=== PATIENT | male | born 1970 | race Two or more races ===

== ENCOUNTER 2024-07-08 11:06 | Inpatient (IN) | payer OTHER, SELFPAY ==
[2024-06-24 09:02] LABS: Hematocrit 42.4 % (39.0-52.0); Hemoglobin 14.4 g/dL (13.0-18.0); Mean Corpuscular Hgb 31.4 pg (27.0-31.0); Mean Corpuscular Volume 92.4 fL (80.0-94.0); Mean Platelet Volume 10.4 fL (7.4-10.4); Platelet Count 169 10^3/uL (130-400); Red Blood Cell Count 4.59 10^6/uL (4.70-6.10); Red Cell Dist. Width 12.9 % (11.5-14.5); White Blood Cell Count 5.3 10^3/uL (4.8-10.8)
[2024-06-24 09:08] LABS: INR 1.04; PT 13.4 Sec (11.4-14.6)
[2024-06-24 09:09] LABS: APTT 28.1 Sec (23.4-35.0)
[2024-06-24 09:29] VITALS: BMI 31.4
[2024-06-24 09:35] LABS: ALT (SGPT) 37 U/L (0-50); AST (SGOT) 29 U/L (17-59); Albumin 4.3 g/dl (3.5-5.0); Alkaline Phosphatase 62 U/L (38-126); Blood Urea Nitrogen 17 mg/dl (9-20); Calcium 9.2 mg/dl (8.4-10.2); Carbon Dioxide 28 mmol/L (22-30); Chloride 101 mmol/L (98-107); Estimated Creatinine Clearance 97 ml/min; Glucose 114 mg/dl (70-99); Potassium 4.3 mmol/L (3.5-5.1); Sodium 138 mmol/L (135-145); Total Protein 6.6 g/dl (6.3-8.2); eGFR > 60.00
[2024-06-24 10:12] LABS: Glycohemoglobin (HgbA1c) 5.8 % (4.0-5.6)
[2024-07-08] VITALS (14 sets, daily range): BP systolic 122–150; BP diastolic 76–92; BMI 31.4
[2024-07-08] MEDS: TYLENOL 1000 MG PO (11:44)
[2024-07-08] MEDS: ENTEREG 12 MG PO (11:44)
[2024-07-08] MEDS: NORMOSOL-R/PLASMALYTE-A 1000 IV ×2 (11:45→18:34)
[2024-07-08] MEDS: HEPARIN 5000 UNITS SC (11:46)
[2024-07-08] MEDS: DILAUDID 0.5 MG IV ×4 (17:26→21:43)
--- NOTE | 2024-07-08 17:29 | W.IMMPOSTOP ---
Surgical Immed Post Op Note
-
Primary Surgeon: Negrito Acosta MD
Assistants: ERIC Arzate
Pre-op Diagnosis: Recurrent sigmoid diverticulitis
Post-op Diagnosis: Same
Procedure Performed: Robotic sigmoid resection with intracorporeal anastomosis; takedown of splenic flexure
Anesthesia Type: GET
Specimen / Cultures: Sigmoid colon (suture is proximal)
Estimated Blood Loss: 25cc
Complications: None
Operative Findings: Sigmoid diverticulitis in the proximal sigmoid colon
28mm EEA
Normal leak test
Patient's updated in the waiting room.
[2024-07-08] MEDS: TORADOL 15 MG IV (18:04)
[2024-07-08] MEDS: LIPITOR 20 MG PO (21:43)
[2024-07-08] MEDS: SINGULAIR 10 MG PO (21:43)
[2024-07-08] MEDS: TYLENOL 650 MG PO (21:44)
[2024-07-09] MEDS: TORADOL 15 MG IV ×5 (00:14→23:15)
[2024-07-09] MEDS: TYLENOL 650 MG PO ×4 (00:17→11:42)
[2024-07-09] MEDS: TYLENOL PO (04:07)
[2024-07-09] MEDS: DILAUDID 0.5 MG IV ×4 (04:17→18:12)
[2024-07-09] MEDS: NORMOSOL-R/PLASMALYTE-A 1000 IV ×3 (04:28→23:16)
[2024-07-09 06:00] VITALS: BMI 31.4
[2024-07-09 07:24] LABS: Blood Urea Nitrogen 15 mg/dl (9-20); Calcium 8.2 mg/dl (8.4-10.2); Carbon Dioxide 27 mmol/L (22-30); Chloride 99 mmol/L (98-107); Estimated Creatinine Clearance 107 ml/min; Glucose 145 mg/dl (70-99); Potassium 4.4 mmol/L (3.5-5.1); Sodium 138 mmol/L (135-145); eGFR > 60.00
[2024-07-09 07:35] VITALS: BP 129/74
[2024-07-09] MEDS: ENTEREG 12 MG PO ×2 (08:15→19:27)
[2024-07-09] MEDS: ASPIR LOW (ENTERIC COATED) 81 MG PO (08:15)
[2024-07-09 08:50] LABS: % Basophils 0.2 % (0-2); % Immature Granulocytes 0.5 % (0-0.5); % Lymphocytes 5.2 % (20.5-51.1); % Monocytes 9.5 % (1.7-9.3); % Neutrophils 84.7 % (42.2-75.2); Absolute Lymphocytes 0.5 10^3/uL (1.2-3.4); Absolute Neutrophils 9.2 10^3/uL (1.4-6.5); Hematocrit 39.9 % (39.0-52.0); Hemoglobin 13.9 g/dL (13.0-18.0); Mean Corp Hgb Conc. 34.7 g/dL (33.0-37.0); Mean Corpuscular Hgb 31.7 pg (27.0-31.0); Mean Corpuscular Volume 91.4 fL (80.0-94.0); Mean Platelet Volume 11.2 fL (7.4-10.4); Nucleated Red Blood Cells % 0 % (-); Platelet Count 85 10^3/uL (130-400); Red Blood Cell Count 4.41 10^6/uL (4.70-6.10); Red Cell Dist. Width 13.2 % (11.5-14.5); White Blood Cell Count 10.9 10^3/uL (4.8-10.8)
--- NOTE | 2024-07-09 08:59 | W.PN.GS2 ---
Addendum entered and electronically signed by Tino Cunningham MD 07/09/24 14:48:
I saw and examined the patient.
The Agricultural Research Director's note was reviewed and I agree with the note with one change noted below.
Comment: Issues with pain control. He is trying to avoid narcs. Discussed multimodal mgmt and the importance of keeping pain reasonably well controlled. Exam approp, mild soft distention, incisions cdi. New thrombocytopenia, mild - will hold
lovenox for this reason, SCDs for DVT ppx; added scheduled ofirmev to toradol and added prn oxy, dilaudid also avail prn
Original Note:
Today's Communication / Plan
-
OOB/Ambulate
Wean off o2
Assessment / Plan
-
54 yo male with h/o recurrent sigmoid diverticulitis now POD #1 robotic sigmoid resection
AFVSS
Tolerated the procedure well
Mild thrombocytopenia noted, labs otherwise stable
Await bowel recovery
--C/W CLD
--Wean off O2, IS while awake
--OOB/Ambulate
--Multimodal analgesics
--Lovenox 40mg sq for vte ppx with scds while in bed
Subjective Data
-
Date of Service: July 09, 2024
Patient seen and examined at bedside. Denies n/v. Not passing flatus as of yet, but hearing a lot of 'gurgling' in his stomach. Pain in shoulders and with deep inspiration.
Objective Data
-
Intake and Output
07/08/24 07/09/24 07/10/24
06:59 06:59 06:59
Intake Total 2120 / 2120
Output Total 950 / 950
Balance 1170 / 1170
Intake:
Oral fluids 420 / 420
IV fluids (Total) 1700 / 1700
Normosol 600 / 600
Output:
Urine, Jessica 950 / 950
Vital Signs
Temp Pulse Resp BP Pulse Ox
98.5 F 75 16 129/74 96
07/09/24 07:35 07/09/24 07:35 07/09/24 07:35 07/09/24 07:35 07/09/24 07:35
Lab Results
07/09/24 06:29
07/09/24 06:29
Calcium 8.2 mg/dl (8.4-10.2) L 07/09/24 06:29
Total Bilirubin 1.0 mg/dl (0.2-1.3) 06/24/24 07:09
AST 29 U/L (17-59) 06/24/24 07:09
ALT 37 U/L (0-50) 06/24/24 07:09
Alkaline Phosphatase 62 U/L (38-126) 06/24/24 07:09
Total Protein 6.6 g/dl (6.3-8.2) 06/24/24 07:09
Albumin 4.3 g/dl (3.5-5.0) 06/24/24 07:09
Physical Exam
-
NAD
ABD soft, mild distention, mild generalized tenderness
Incisions clear, dry, intact
Jessica with clear, yellow urine
--- NOTE | 2024-07-09 12:10 | CM ---
Patient seen at bedside. Patient states that he lives with his in a 2 story home. patient stated that he has no DME, Patient PCP is Dr. Betancourt and uses the [facility] in [place]. Patient stated that he was uncomfortable and did not know when he
would be able to go home. Patient may benefit from PT/OT assessment when appropriate. CM will continue to follow for discharge planning needs.
Plan; home with VN vs home with no needs.
[2024-07-09 15:05] VITALS: BP 124/70
[2024-07-09] MEDS: ROXICODONE 5 MG PO ×2 (16:02→20:06)
[2024-07-09] MEDS: OFIRMEV IV (17:21)
[2024-07-09] MEDS: LIPITOR 20 MG PO (17:26)
[2024-07-09] MEDS: SINGULAIR 10 MG PO (17:26)
[2024-07-09] MEDS: OFIRMEV 100 IV (21:36)
[2024-07-09 23:11] VITALS: BP 145/69
--- NOTE | 2024-07-10 02:36 | PTCARENOTE ---
Pt ambulated with staff this shift, attempted to have BM, only large amount of flatus. Pt reports pain feels slightly better with passing gas.
[2024-07-10 02:44] VITALS: BP 124/75
[2024-07-10] MEDS: DILAUDID 0.25 MG IV (02:45)
[2024-07-10] MEDS: OFIRMEV 100 IV ×2 (04:20→10:31)
[2024-07-10 05:31] VITALS: BMI 31.1
[2024-07-10] MEDS: TORADOL 15 MG IV ×3 (06:14→17:29)
[2024-07-10 08:20] VITALS: BP 131/85
[2024-07-10] MEDS: ENTEREG 12 MG PO ×2 (08:37→19:49)
[2024-07-10] MEDS: ASPIR LOW (ENTERIC COATED) 81 MG PO (08:37)
[2024-07-10] MEDS: NORMOSOL-R/PLASMALYTE-A 1000 IV (08:40)
[2024-07-10 08:43] LABS: Blood Urea Nitrogen 13 mg/dl (9-20); Calcium 8.1 mg/dl (8.4-10.2); Carbon Dioxide 29 mmol/L (22-30); Chloride 102 mmol/L (98-107); Estimated Creatinine Clearance 118 ml/min; Glucose 122 mg/dl (70-99); Sodium 139 mmol/L (135-145); eGFR > 60.00
[2024-07-10 09:01] LABS: Hematocrit 35.6 % (39.0-52.0); Hemoglobin 12.3 g/dL (13.0-18.0); Mean Corp Hgb Conc. 34.6 g/dL (33.0-37.0); Mean Corpuscular Hgb 31.9 pg (27.0-31.0); Mean Corpuscular Volume 92.2 fL (80.0-94.0); Mean Platelet Volume 10.3 fL (7.4-10.4); Platelet Count 141 10^3/uL (130-400); Red Blood Cell Count 3.86 10^6/uL (4.70-6.10); Red Cell Dist. Width 13.4 % (11.5-14.5); White Blood Cell Count 8.3 10^3/uL (4.8-10.8)
[2024-07-10] MEDS: ROXICODONE 10 MG PO ×2 (10:17→22:40)
--- NOTE | 2024-07-10 11:25 | W.PN.GS2 ---
Addendum entered and electronically signed by Tino Cunningham MD 07/10/24 13:48:
I saw and examined the patient.
The Auto Leasing Manager's note was reviewed and I agree with the note.
Comment: Issues with pain control, slightly improved from yesterday. Passing flatu/stool. Incr dose of PO pain meds, adv to fld
Original Note:
Today's Communication / Plan
-
pain management
FLD
Assessment / Plan
-
54 yo male with h/o recurrent sigmoid diverticulitis now POD #2 robotic sigmoid resection
AFVSS
Tolerated the procedure well
Still with significant post op pain
Thrombocytopenia resolved, mild acute anemia secondary to hemodilution/expected losses
Passing flatus/stools
--Advance to FLD
--Trend labs
--OOB/Ambulate
--Multimodal analgesics, increased dosing of oral agents
--Lovenox 40mg sq for vte ppx with scds while in bed
Subjective Data
-
Date of Service: July 10, 2024
Patient seen and examined at bedside with Dr. Cunningham. Still with significant pain. Denies n/v. Tolerating clears. Passing flatus and stools. Has been oob and walking. Voiding since stein removal.
Objective Data
-
Intake and Output
07/09/24 07/10/24 07/11/24
06:59 06:59 06:59
Intake Total 2120 / 2120 3940 / 3940
Output Total 950 / 950 2100 / 2100
Balance 1170 / 1170 1840 / 1840
Intake:
Oral fluids 420 / 420 1340 / 1340
IV fluids (Total) 1700 / 1700 2400 / 2400
Normosol 600 / 600
IV piggybacks 200 / 200
Output:
Urine, Stein 950 / 950 1150 / 1150
Urine, Voided 950 / 950
Vital Signs
Temp Pulse Resp BP Pulse Ox
98.7 F 70 16 131/85 97
07/10/24 08:20 07/10/24 08:20 07/10/24 08:20 07/10/24 08:20 07/10/24 08:20
Lab Results
07/10/24 06:41
07/10/24 06:41
Calcium 8.1 mg/dl (8.4-10.2) L 07/10/24 06:41
Total Bilirubin 1.0 mg/dl (0.2-1.3) 06/24/24 07:09
AST 29 U/L (17-59) 06/24/24 07:09
ALT 37 U/L (0-50) 06/24/24 07:09
Alkaline Phosphatase 62 U/L (38-126) 06/24/24 07:09
Total Protein 6.6 g/dl (6.3-8.2) 06/24/24 07:09
Albumin 4.3 g/dl (3.5-5.0) 06/24/24 07:09
Physical Exam
-
NAD
ABD soft, NT, tender with guarding r>l
Incisions clear, dry, intact
[2024-07-10 15:45] VITALS: BP 130/79
[2024-07-10] MEDS: ROXICODONE 5 MG PO (16:44)
[2024-07-10] MEDS: SINGULAIR 10 MG PO (17:28)
[2024-07-10] MEDS: LIPITOR 20 MG PO (17:28)
[2024-07-10 19:55] VITALS: BP 125/78
[2024-07-10 23:01] VITALS: BP 148/79
[2024-07-10 23:44] VITALS: BP 147/81
[2024-07-11] MEDS: TORADOL 15 MG IV ×5 (00:16→23:10)
[2024-07-11 03:06] VITALS: BP 130/71
[2024-07-11 05:29] VITALS: BMI 30.9
[2024-07-11 06:00] VITALS: BMI 30.9
--- NOTE | 2024-07-11 06:09 | PTCARENOTE ---
pt reported he feels concerned about some minor swelling on the body of the penis. He reported he informed MD yesterday and they reported in would most likely resolve but he is still concerned this morning. He denies any pain or complications
urinating since stein removal on 07/10. Pt encouraged to ask MD on rounds this morning and will pass on the above findings to oncoming RN.
[2024-07-11 07:25] VITALS: BP 143/90
[2024-07-11] MEDS: ENTEREG 12 MG PO ×2 (09:02→20:16)
[2024-07-11] MEDS: ASPIR LOW (ENTERIC COATED) 81 MG PO (09:03)
[2024-07-11] MEDS: ROXICODONE 5 MG PO ×2 (09:37→13:59)
--- NOTE | 2024-07-11 11:54 | W.PN.CRS1 ---
Today's Communication / Plan
-
pain control
low residue diet
Assessment/Plan
-
54 yo male with h/o recurrent sigmoid diverticulitis now POD #3 robotic sigmoid resection
AFVSS
Post op pain
Passing flatus/stools
--Advance to low residue diet
--Trend labs
--OOB/Ambulate
--Multimodal analgesics, increased dosing of oral agents yesterday, increased PRN Dilaudid today
--Non tender on exam and urinating well, will follow swelling
--Lovenox 40mg sq for vte ppx with scds while in bed
Subjective Data
Subjective Data
Date of Service: July 11, 2024
Patient states he has been walking. he has some abdominal pain. He had nausea this morning but is attributing this to acid reflux. He is having bowel movements and flatus. He is hungry. He also complains of some swelling in his penis he noted
yesterday.
Objective Data
-
Vital Signs
Temp Pulse Resp BP Pulse Ox
98.6 F 64 18 143/90 98
07/11/24 09:47 07/11/24 07:25 07/11/24 07:25 07/11/24 07:25 07/11/24 07:25
Intake & Output
07/10/24 07/11/24 07/12/24
06:59 06:59 06:59
Intake Total 3940 / 3940 2260 / 2260
Output Total 2100 / 2100
Balance 1840 / 1840 2260 / 2260
Intake:
Oral fluids 1340 / 1340 960 / 960
IV fluids (Total) 2400 / 2400 1200 / 1200
IV piggybacks 200 / 200 100 / 100
Output:
Urine, Jessica 1150 / 1150
Urine, Voided 950 / 950
Other:
Number of approximated MODERATE 2
amounts of urine
Lab Results
07/10/24 06:41
07/10/24 06:41
Physical Exam
-
General: No Acute Distress and AOx3
Abdomen: Soft, Non Distended and Tender (around incision sites, more prominently in the lower incision)
Skin: Warm and Dry
Incision: Clear, Dry, Intact
[2024-07-11 15:04] VITALS: BP 148/88
[2024-07-11] MEDS: LOVENOX 40 MG SC (17:09)
[2024-07-11] MEDS: SINGULAIR 10 MG PO (17:09)
[2024-07-11] MEDS: LIPITOR 20 MG PO (17:09)
[2024-07-11] MEDS: ROXICODONE 10 MG PO (23:10)
[2024-07-11 23:15] VITALS: BP 137/84
[2024-07-11] MEDS: PEPCID 20 MG PO (23:53)
[2024-07-12] MEDS: TORADOL 15 MG IV ×2 (05:09→12:02)
[2024-07-12 06:00] VITALS: BMI 30.6
[2024-07-12 07:40] VITALS: BP 138/82
[2024-07-12] MEDS: ENTEREG 12 MG PO (07:59)
[2024-07-12] MEDS: ASPIR LOW (ENTERIC COATED) 81 MG PO (07:59)
--- NOTE | 2024-07-12 10:03 | W.PN.CRS1 ---
Addendum entered and electronically signed by Clinton London MD 07/12/24 10:57:
Correction *POD 4*
Original Note:
Today's Communication / Plan
-
As below
Assessment/Plan
-
54-year-old male with PMH of HLD and recurrent diverticulitis who presented for elective surgery
POD 3 robotic sigmoid for recurrent diverticulitis
AFVSS
No labs today
� Continue low residue
� Continue pain control with Toradol, oxycodone and Dilaudid as needed
� Continue home medications
� Continue DVT PPx with Lovenox
� Findings on genitourinary exam seem most consistent with mild bruising likely due to traumatic Jessica insertion
�No difficulty with urination and improving; hold off urology consult
� OOB/IS
Dispo�discharge today
Subjective Data
Subjective Data
Date of Service: July 12, 2024
No overnight events. The penile swelling improved since yesterday.
Pain better controlled today
Denies nausea/vomiting. Tolerating diet.
+flatus +BMs +voiding
Pt is OOB.
Objective Data
-
Vital Signs
Temp Pulse Resp BP Pulse Ox
98.5 F 62 17 138/82 99
07/12/24 07:40 07/12/24 07:40 07/12/24 07:40 07/12/24 07:40 07/12/24 07:40
Intake & Output
07/11/24 07/12/24 07/13/24
06:59 06:59 06:59
Intake Total 2260 / 2260 1680 / 1680
Output Total 920 / 920
Balance 2260 / 2260 760 / 760
Intake:
Oral fluids 960 / 960 1680 / 1680
IV fluids (Total) 1200 / 1200
IV piggybacks 100 / 100
Output:
Urine, Voided 920 / 920
Other:
Number of approximated MODERATE 2 2
amounts of urine
Lab Results
07/10/24 06:41
07/10/24 06:41
Physical Exam
-
General: No Acute Distress and AOx3
HEENT: Grossly Normal
Abdomen: Soft, Non Distended, Tender (Appropriately tender near incisions), No Guarding and No Rebound
Neurological: No Motor Deficits and No Sensory Deficits
Skin: Warm and Dry
Wound: No Signs of Infection, Dressing in Place (Dermabond) and No Skin Erythema
--- NOTE | 2024-07-12 10:51 | W.DCSUMMARY ---
Discharge Summary
Discharge Data
Date of Admission: 07/08/24
Date of Discharge: 07/12/24
-
Pending Results: Yes
Additional Pending Results:
Pathology
Hospital Course
He presented to [facility] on 07/08/2024 for robotic sigmoid resection and takedown of splenic flexure due to recurrent sigmoid diverticulitis. The surgery was performed by Dr. Acosta. He tolerated the procedure well and was brought back to
the medical surgical floor. Throughout his stay his diet was advanced from a clear liquid diet to low residue when he regained bowel function. He was started on Lovenox for DVT prophylaxis. He had some issues with pain control initially but this
was resolved after his medications were changed. On postop day 4 it was determined the patient can be discharged to home. All discharge instructions were discussed with patient. All questions answered.
Discharge Plan
-
Patient Disposition: Home (Routine Discharge)
Discharge Diagnosis/Procedures: Robotic sigmoid colectomy for recurrent diverticulitis
Condition: Good
Diet: Low Residue
Activity: No strenuous activity
Additional Activity: No heavy lifting (>20lbs for 4 weeks)
Driving Restrictions: No driving for 1 week
Bathing Restrictions: OK to Shower
Wound Care: the glue will fall off by itself in a few weeks
Instructions: Low Fiber Diet
Referrals:
Isaak Acosta MD [Active] - in two weeks
Demetrice Bean MD [Family Provider] -
Additional Discharge Medication Instructions: Tylenol as needed for pain if you do not want to use oxycodone. Maximum dose of Tylenol is 4000 mg in 24 hours.
Prescriptions:
New
oxycodone 5 mg tablet
5 mg PO Q6H PRN (Reason: Pain) Qty: 20 0RF
No Action
atorvastatin 20 mg Tablet
20 mg PO QPM
aspirin 81 mg Tablet,Delayed Release (Dr/Ec)
81 mg PO DAILY
montelukast 10 mg Tablet
10 mg PO QPM
Vitamin D3
1 cap PO QPM
zinc
1 tab PO QPM
Bowel Prep Kit
1 dose PO DIRECTED
Patient Comments:
pt did not take last dose, he fell asleep.
Discharge Orders:
Discharge Patient (As Directed); Ordered 07/12/24
Ordered By: Dannielle Levine
Discharge Date and Time
Print Language: LAO
[2024-07-12 11:23] VITALS: BP 132/73
--- NOTE | 2024-07-12 11:28 | CM ---
Pt for discharge today
Has ride home with family member
Plan - home no needs
== END 2024-07-12 12:20 | disposition home or self-care (01) | DRG 330 ==
LOC: 2 SOUTH 11:06
PROVIDERS: Registered Nurse; ADMITTING PHYSICIAN Surgery; FAMILY PHYSICIAN Family Medicine
PROC: 0DTN4ZZ Resection of Sigmoid Colon, Percutaneous Endoscopic Approach (ICD-10-PCS; 2024-07-08)
PROC: 8E0W4CZ Robotic Assisted Procedure of Trunk Region, Percutaneous Endoscopic Approach (ICD-10-PCS; 2024-07-08)
DX: K57.32 Diverticulitis of large intestine without perforation or abscess without bleeding (principal); D62 Acute posthemorrhagic anemia; K66.0 Peritoneal adhesions (postprocedural) (postinfection); D69.6 Thrombocytopenia, unspecified; E78.5 Hyperlipidemia, unspecified; Z79.82 Long term (current) use of aspirin
CPT/HCPCS: 88307; 80048; 80053; 83036; 85025; 85027; 85610; 85730; 86850; 86900; 86901; 93005; J1335